=== PATIENT | female | born 1930 | race Caucasian/White ===

== ENCOUNTER 2020-02-14 11:47 | Inpatient (IN) | payer OTHER ==
[~2020-02-14] VITALS: Ht 167.6 cm; Wt 72.5 kg
[2020-02-14] VITALS (7 sets, daily range): BP systolic 78–151; BP diastolic 51–82
[2020-02-14] MEDS ORDERED: ACETAMINOPHEN 650 MG RECT SUPP PR ONE (12:30)
[2020-02-14] MEDS ORDERED: SODIUM CHLORIDE 0.9% 1,000 ML IVB ONE ×2 (12:30)
[2020-02-14] MEDS ORDERED: AZITHROMYCIN 500MG/ 250ML 250 ML IV ONE (13:15)
[2020-02-14] MEDS ORDERED: ZINC SULFATE 220mg CAP or TAB PO ONE (13:15)
[2020-02-14] MEDS ORDERED: ASCORBIC ACID 500 MG TAB PO ONE (13:15)
[2020-02-14 13:33] LABS: Basophils # (auto) 0 10 ^3/uL (0-0.2); Basophils % (auto) 0.3 % (0.0-2.0); Eosinophils # (auto) 0 10 ^3/uL (0-0.8); Hematocrit 36.5 % (36.0-46.0); Hemoglobin 12.6 g/dL (12.2-16.2); Lymphocytes # (auto) 0.5 10 ^3/uL (0.4-5.4); Lymphocytes % (auto) 4.6 % (10.0-50.0); Mean Corpuscular Hemoglobin 32.5 pg (28.0-32.0); Mean Corpuscular Hgb Conc. 34.5 g/dL (32.0-36.0); Mean Corpuscular Volume 94.3 fL (80.0-100.0); Monocytes # (auto) 1.2 10 ^3/uL (0-1.3); Monocytes % (auto) 11.2 % (0.0-12.0); Neutrophils # (auto) 9.2 10 ^3/uL (1.6-8.6); Neutrophils % (auto) 83.9 % (37.0-80.0); Platelet Count (auto) 314 10^3/uL (140-450); Red Blood Cells 3.87 10^6/uL (4.0-5.20); Red Cell Distribution Width 13.3 % (11.8-14.3)
[2020-02-14 13:43] LABS: Albumin 2.2 g/dL (3.4-5.0); Anion Gap 4 (5-15); Blood Urea Nitrogen 19 mg/dL (7-18); Calcium 9.4 mg/dL (8.5-10.1); Carbon Dioxide 28 mmol/L (21-32); Chloride 106 mmol/L (98-107); Glucose 134 mg/dL (74-106); Magnesium 2.6 mg/dL (1.6-2.6); Potassium 3.9 mmol/L (3.5-5.1); Sodium 138 mmol/L (136-145)
[2020-02-14 13:51] LABS: Alanine Aminotransferase 14 U/L (13-56); Alkaline Phosphatase 83 U/L (45-117); Aspartate Aminotransferase 15 U/L (15-37); BUN/Creatinine Ratio 26.4; Bilirubin, Total 0.7 mg/dL (0.2-1.0); Blood Alcohol < 3.0 mg/dL (0-5); GFR African American 98 mL/min; GFR Non-African American 81 mL/min
[2020-02-14 14:21] LABS: INR > 8.0 (0.9-1.15); Partial Thromboplastin Time 127.1 sec (23.0-31.2)
[2020-02-14] MEDS ORDERED: PHYTONADIONE(VitK) ORAL Susp 10mg/10ml(1mg/ml) PO ONE (14:30)
[2020-02-14 14:40] LABS: Urine Bacteria MANY /hpf (None Seen); Urine Blood Negative /uL (Negative); Urine Mucus FEW (None Seen); Urine Specific Gravity 1.017 (1.001-1.035); Urine WBC 1 /hpf (0 - 5)
[2020-02-14] MEDS ORDERED: phytonadione 5 MG in SODIUM CHL 0.9% 50 ML IV ONE (15:30)
[2020-02-14] MEDS ORDERED: LACTULOSE 20Gm/30ML SOLN PO PRN (16:00)
[2020-02-14] MEDS ORDERED: phytonadione 10 MG in SODIUM CHL 0.9% 50 ML IV ONE (16:00)
[2020-02-14] MEDS ORDERED: levoFLOXacin 500MG 100 ML IV ONE (16:00)
[2020-02-14] MEDS ORDERED: NITROGLYCERIN 0.4 MG SL TAB SL PRN (16:00)
[2020-02-14] MEDS ORDERED: MORPHINE SULF INJ 2 MG/ML SYRINGE 1ML IV PRN ×3 (16:00)
[2020-02-14] MEDS ORDERED: ALBUTEROL SULF 2.5 MG/0.5ML(0.5%) NEB SOLN NEB PRN (16:00)
[2020-02-14] MEDS ORDERED: ACETAMINOPHEN 500 MG TAB PO PRN (16:30)
[2020-02-14] MEDS ORDERED: IPRATROPIUM BROM 0.5 MG/2.5ML INH SOL NEB SCH (18:00)
[2020-02-14] MEDS ORDERED: ALBUTEROL SULF 2.5 MG/0.5ML(0.5%) NEB SOLN NEB SCH (18:00)
[2020-02-14] MEDS: ALBUTEROL SULF HFA 90MCG INH 200DOSE IN SCH (22:00)
[2020-02-14] MEDS: FAMOTIDINE (10MG/ML) 2ML VL IV SCH (22:16)
[2020-02-14] MEDS: SODIUM CHLOR 0.9% PF (SALINE LOCK) 10ML VIAL/SYR IV SCH (22:17)
[2020-02-14] MEDS: CLINDAMYCIN 600MG IV 50 ML IV SCH (23:42)
[2020-02-15 05:00] VITALS: BP 151/91
[2020-02-15] MEDS: SODIUM CHLOR 0.9% PF (SALINE LOCK) 10ML VIAL/SYR IV SCH ×3 (05:35→21:11)
[2020-02-15] MEDS: CLINDAMYCIN 600MG IV 50 ML IV SCH ×3 (05:35→21:11)
[2020-02-15] MEDS: ALBUTEROL SULF HFA 90MCG INH 200DOSE IN SCH (08:00)
[2020-02-15 09:00] VITALS: BP 86/50
[2020-02-15] MEDS: DexAMETHasone SOD PHOS 10MG/1ML VIAL INJ IV SCH (09:15)
[2020-02-15] MEDS: FAMOTIDINE (10MG/ML) 2ML VL IV SCH (09:15)
[2020-02-15] MEDS: levoFLOXacin 250MG 50 ML IV SCH (09:15)
[2020-02-15 09:17] LABS: Basophils # (auto) 0 10 ^3/uL (0-0.2); Basophils % (auto) 0.2 % (0.0-2.0); Eosinophils # (auto) 0 10 ^3/uL (0-0.8); Hematocrit 33.8 % (36.0-46.0); Hemoglobin 11.4 g/dL (12.2-16.2); Lymphocytes # (auto) 0.3 10 ^3/uL (0.4-5.4); Lymphocytes % (auto) 4.3 % (10.0-50.0); Mean Corpuscular Hemoglobin 32.4 pg (28.0-32.0); Mean Corpuscular Hgb Conc. 33.7 g/dL (32.0-36.0); Mean Corpuscular Volume 96.2 fL (80.0-100.0); Monocytes # (auto) 0.6 10 ^3/uL (0-1.3); Monocytes % (auto) 7.8 % (0.0-12.0); Neutrophils % (auto) 87.7 % (37.0-80.0); Nucleated Red Blood Cells % 0.1 %; Platelet Count (auto) 257 10^3/uL (140-450); Red Blood Cells 3.51 10^6/uL (4.0-5.20); Red Cell Distribution Width 13.3 % (11.8-14.3); White Blood Cell 7.9 10^3/uL (4.4-10.8)
[2020-02-15 09:28] LABS: Potassium 3.3 mmol/L (3.5-5.1)
[2020-02-15 09:37] VITALS: BP 107/61
[2020-02-15 09:37] LABS: Albumin 1.8 g/dL (3.4-5.0); BUN/Creatinine Ratio 37.5; Bilirubin, Total 1.1 mg/dL (0.2-1.0); Calcium 8.9 mg/dL (8.5-10.1); Total Protein 5.7 g/dL (6.4-8.2)
[2020-02-15] MEDS ORDERED: CHOLECALCIFEROL (VITD3) 2,000 UNIT CAP PO SCH (10:00)
[2020-02-15] MEDS ORDERED: ZINC SULFATE 220mg CAP or TAB PO SCH (10:00)
[2020-02-15] MEDS ORDERED: ASCORBIC ACID 1,000 MG TAB PO SCH (10:00)
[2020-02-15 10:09] LABS: INR 1.51 (0.9-1.15); Partial Thromboplastin Time 37.4 sec (23.0-31.2)
[2020-02-15 13:00] VITALS: BP 94/76
[2020-02-15] MEDS ORDERED: ACETYLCYSTEINE 10 %(100MG/ML) SOL 4ML NEB SCH (14:00)
[2020-02-15 17:58] VITALS: BP 114/72
[2020-02-15 22:00] VITALS: BP 89/46
[2020-02-16 05:00] VITALS: BP 101/60
[2020-02-16] MEDS: CLINDAMYCIN 600MG IV 50 ML IV SCH ×2 (05:10→14:00)
[2020-02-16] MEDS: SODIUM CHLOR 0.9% PF (SALINE LOCK) 10ML VIAL/SYR IV SCH ×2 (05:10→14:00)
[2020-02-16 07:24] LABS: Basophils # (auto) 0 10 ^3/uL (0-0.2); Basophils % (auto) 0.1 % (0.0-2.0); Eosinophils # (auto) 0 10 ^3/uL (0-0.8); Hematocrit 34.2 % (36.0-46.0); Hemoglobin 11.5 g/dL (12.2-16.2); Lymphocytes # (auto) 0.3 10 ^3/uL (0.4-5.4); Lymphocytes % (auto) 3.9 % (10.0-50.0); Mean Corpuscular Hemoglobin 32.4 pg (28.0-32.0); Mean Corpuscular Hgb Conc. 33.6 g/dL (32.0-36.0); Mean Corpuscular Volume 96.3 fL (80.0-100.0); Monocytes # (auto) 0.6 10 ^3/uL (0-1.3); Monocytes % (auto) 6.8 % (0.0-12.0); Neutrophils # (auto) 7.5 10 ^3/uL (1.6-8.6); Neutrophils % (auto) 89.2 % (37.0-80.0); Platelet Count (auto) 280 10^3/uL (140-450); Red Blood Cells 3.56 10^6/uL (4.0-5.20); Red Cell Distribution Width 13.2 % (11.8-14.3); White Blood Cell 8.4 10^3/uL (4.4-10.8)
[2020-02-16 07:25] LABS: Potassium 3.3 mmol/L (3.5-5.1)
[2020-02-16 07:31] LABS: BUN/Creatinine Ratio 41.9; Calcium 9.3 mg/dL (8.5-10.1)
[2020-02-16 09:15] VITALS: BP 121/69
[2020-02-16] MEDS: DexAMETHasone SOD PHOS 10MG/1ML VIAL INJ IV SCH (10:41)
[2020-02-16] MEDS: levoFLOXacin 250MG 50 ML IV SCH (10:42)
[2020-02-16] MEDS: FAMOTIDINE (10MG/ML) 2ML VL IV SCH (11:39)
[2020-02-16 12:56] VITALS: BP 127/65
[2020-02-16 14:16] VITALS: BP 127/65
== END 2020-02-16 16:33 | disposition hospice, home (50) | DRG 64 ==
LOC: ER 11:47 → EDBD 11:47 → TELE-DOU 11:48 → TELE-EAST 17:35 → TELE-WESTW 02-15 14:37
PROVIDERS: ADMIT Internal Medicine; ATTEND Internal Medicine
PROC: 30233K1 Transfusion of Nonautologous Frozen Plasma into Peripheral Vein, Percutaneous Approach (ICD-10-PCS; principal; 2020-02-14)
DX: I62.00 Nontraumatic subdural hemorrhage, unspecified (principal); I50.43 Acute on chronic combined systolic (congestive) and diastolic (congestive) heart failure; J96.00 Acute respiratory failure, unspecified whether with hypoxia or hypercapnia; J69.0 Pneumonitis due to inhalation of food and vomit; L03.116 Cellulitis of left lower limb; I48.11 Longstanding persistent atrial fibrillation; D68.9 Coagulation defect, unspecified; G93.40 Encephalopathy, unspecified; Z20.828 Contact with and (suspected) exposure to other viral communicable diseases; Z66 Do not resuscitate; Z51.5 Encounter for palliative care; I11.0 Hypertensive heart disease with heart failure; F03.90 Unspecified dementia, unspecified severity, without behavioral disturbance, psychotic disturbance, mood disturbance, and anxiety; R40.20 Unspecified coma; E78.5 Hyperlipidemia, unspecified; Z88.1 Allergy status to other antibiotic agents; Z85.3 Personal history of malignant neoplasm of breast; Z88.8 Allergy status to other drugs, medicaments and biological substances; Z90.11 Acquired absence of right breast and nipple
CPT/HCPCS: 36415; 51702; 70450; 71045; 80048; 80053; 80320; 81001; 83605; 83735; 84484; 85025; 85610; 85730; 86850; 86900; 86901; 87040; 87086; 87088; 87186; 87205; 87426; 93005; 96365; 96367; 96375; 99291; G0378; J1100; J1956; J3430; J3490